=== PATIENT | female | born 1970 | race Caucasian/White ===

== ENCOUNTER 2019-09-30 10:59 | Emergency (ER) | payer OTHER ==
[~2019-09-30] VITALS: Ht 157.5 cm; Wt 75.1 kg
--- NOTE | 2019-09-30 11:38 | NUR ---
PT AMBULATED TO ROOM WITH A STEADY GAIT. PT CHANGED INTO A GOWN AND PERSONAL BELONGINGS PLACED IN 1 OF 1 BAGS AND SECURED IN LOCKER. PT IN ED PER PCP REQUEST TO SEEK HELP. PT STATES THAT SHE DID NOT ATTEMPT SUICIDE BUT HAD A PLAN TO "SLIT (HER) THROAT)" PT BECOMES VERY TEARFUL WITH EXPLINATION. PT VERBALIZED THAT SHE HAS BEEN "ON AND OFF" PHYSIC MEDICATIONS BUT NOT CURRENTLY TAKING ANY.
--- NOTE | 2019-09-30 11:41 | NUR ---
PROVIDER AT BEDSIDE.
[2019-09-30 11:42] VITALS: BP 144/90
[2019-09-30 11:58] LABS: BASOPHILS # (AUTO) 0.03 x10^3/uL (0-0.1); BASOPHILS % (AUTO) 1 % (0-1); EOSINOPHILS # (AUTO) 0.06 x10^3/uL (0-0.4); EOSINOPHILS % (AUTO) 1 % (1-7); LYMPHOCYTES # (AUTO) 1.94 x10^3/uL (1-3.4); LYMPHOCYTES % (AUTO) 30 % (22-44); MD NO; MEAN CORPUSCULAR HEMOGLOBIN 30.4 pg (27.0-34.8); MEAN CORPUSCULAR HGB CONC 33.6 g/dL (32.4-35.8); MEAN CORPUSCULAR VOLUME 90.3 fL (80-100); MEAN PLATELET VOLUME 8.7 fL (7.4-10.4); MONOCYTES # (AUTO) 0.56 x10^3/uL (0.2-0.8); MONOCYTES % (AUTO) 9 % (2-9); NEUTROPHILS # (AUTO) 3.93 x10^3/uL (1.8-6.8); NEUTROPHILS % (AUTO) 60 % (42-75); PLATELET COUNT 250 x10^3/uL (130-400); RED CELL DISTRIBUTION WIDTH 13.6 % (9.6-15.2)
--- NOTE | 2019-09-30 12:04 | NUR ---
pt asleep. door open, curtain open. In direct line of slight of sitter. Respiration unimpeeded. no s/s of distress at this time. SI precautions maintained.
[2019-09-30 12:08] LABS: ALBUMIN 3.8 g/dL (3.4-5.0); ANION GAP 7 mmol/L (5-15); CALCIUM 9.2 mg/dL (8.5-10.1); CHLORIDE 108 mmol/L (98-107)
[2019-09-30 12:09] LABS: SALICYLATE LEVEL < 1.7 mg/dL (2.8-20.0)
--- NOTE | 2019-09-30 12:13 | NUR ---
Herman DRAPER to bedside.
[2019-09-30 12:17] LABS: CREATININE 0.85 mg/dL (0.55-1.02)
[2019-09-30 13:55] LABS: AMPHETAMINE SCREEN, URINE Negative (Negative); BARBITURATE SCREEN, URINE Negative (Negative); BENZODIAZEPINE SCREEN, URINE Negative (Negative); CANNABINOID SCREEN, URINE Negative (Negative); COCAINE SCREEN, URINE Negative (Negative); METHADONE SCREEN, URINE Negative (Negative); OPIATE SCREEN, URINE Negative (Negative)
--- NOTE | 2019-09-30 14:52 | NUR ---
[facility] ACCEPTED PT FOR DR. RANDOLPH.
[2019-09-30] MEDS ORDERED: HYDROXYZINE PAMOATE 50MG CAP PO PRN (15:00)
[2019-09-30] MEDS ORDERED: TRAZODONE 50MG TABLET PO PRN (15:00)
--- NOTE | 2019-09-30 15:59 | NUR ---
ATTEMPTED TO CALL RN, RN AT THIS TIME UNABLE TO TAKE.
--- NOTE | 2019-09-30 16:12 | NUR ---
Patient resting in room against bed. Pt cooperative, pt has unlabored respirations and cap refill under 3 seconds.
--- NOTE | 2019-09-30 17:24 | NUR ---
report to Dickson yusuf for [facility]
--- NOTE | 2019-09-30 17:42 | NUR ---
Patient resting in room against bed. Pt cooperative, pt has unlabored respirations and cap refill under 3 seconds.
--- NOTE | 2019-09-30 18:15 | NUR ---
[facility]
[2019-09-30] MEDS ORDERED: DULOXETINE 20 MG CAPSULE.DR PO SCH (21:00)
== END 2019-09-30 18:19 ==
LOC: ED 12:52
DX: R45.851 Suicidal ideations (principal); F32.9 Major depressive disorder, single episode, unspecified
CPT/HCPCS: 36415; 80048; 80307; 82040; 85025; 99285